=== PATIENT | male | born 1970 | race Caucasian/White ===

== ENCOUNTER 2016-09-11 10:50 | Day surgery (SDC) | payer BC ==
[~2016-09-11 10:50] MED LIST: FLONASE ALLERG9.9 ML; ZYRTEC10 M7 PO
== END 2016-09-11 16:00 ==
LOC: SHSB 10:50 → ORE 12:36 → PACU 14:04 → SHSB 14:47
PROC: 0NBS0ZZ (ICD-10-PCS; principal; 2016-09-11)
PROC: [UNRECOGNIZED PROCEDURE] (2016-09-11)
DX: K09.0 Developmental odontogenic cysts (principal); Z79.899 Other long term (current) drug therapy; Z91.048 Other nonmedicinal substance allergy status; Z91.040 Latex allergy status; Z87.891 Personal history of nicotine dependence; Z98.890 Other specified postprocedural states
CPT/HCPCS: J0690; J1170; P9034